=== PATIENT | male | born 1970 | race Caucasian/White ===

== ENCOUNTER 2019-01-03 11:26 | Emergency (ER) | payer OTHER, SELFPAY ==
[2019-01-03 11:48] VITALS: BP 138/108; PULSE 92; RESP 20; TEMP 36.9; O2SAT 99
--- NOTE | 2019-01-03 11:57 | ED.BACK ---
HPI - Back Pain/Injury General Chief Complaint: Back Pain/Injury Stated Complaint: Back pain and spasm since tuesday Time Seen by Provider: 01/03/19 11:56 Source: patient and family () Mode of arrival: ambulatory Limitations: no limitations History of Present Illness HPI Narrative: This is a 48-year-old male comes emergency department complaint of low back pain. Patient states that he chronically has back pain probably about a 3/10 all the time. Over the weekend he was doing a lot of yd work and noted that it increased quite a bit. Normally will calm down after a day or so but he has continued to have back pain that is increased from his normal baseline for the last 3 days. He denies any radiation, denies any loss of bowel or bladder control, denies any numbness or tingling. Patient states little bit more on the right side it is not midline. Skin above SI region or the soft tissue. Patient states that standing for prolonged periods seems to make it worse, he does notice a little bit worse when he tries to urinate or bend over to lift up the toilet seat. Also if he sitting for long period of time and then tries to get up uncomfortable. Patient states sometimes even just walking across the room will cause him to spasm a little bit more. He states that he had 2 Soma at home which he took yesterday and the day before which were not very helpful. He also tried some ibuprofen with minimal improvement. He has not had any prior back surgeries. Denies any other medical issues. He has a braden in his tibia for fracture. He states that his made him come in today. He has a follow-up appointment tomorrow with primary care but his was concerned that she might not be able to get him out of the car tomorrow. He does work as a water plant operator for many years, he is currently an administrative work but states he did abuse his back quite a bit earlier in his career and had a major back sprain/strain 5-10 years ago. Related Data Home Medications Medication Instructions Recorded Confirmed dextroamphetamine-amphetamine 20 mg PO DAILY 01/03/19 01/03/19 Previous Rx's Medication Instructions Recorded diazepam [Valium] 2 mg PO TID PRN #5 tab 01/03/19 Allergies Allergy/AdvReac Type Severity Reaction Status Date / Time No Known Drug Allergies Allergy Verified 01/03/19 12:19 Review of Systems Review of Systems ROS Unobtainable: All systems reviewed & are unremarkable except as noted in HPI and below Constitutional Denies chills and Denies fever(s) ENT Ears, Nose, Mouth, and Throat: Denies neck pain Gastrointestinal Gastrointestinal: Denies fecal incontinence Genitourinary Denies flank pain, Denies urinary incontinence and Denies urinary urgency Musculoskeletal Reports as per HPI, Reports back pain, Denies myalgias, Reports limited range of motion, Denies muscle weakness, Denies neck pain, Denies numbness, Denies radiating pain into limb, Reports stiffness and Denies tingling Integumentary/Breasts Denies unusual bruising Neurologic Denies numbness and Denies tingling [facility] Medical History (Updated 01/03/19 @ 12:25 by Kathe Guy DO) Chronic back pain (Chronic) Social History Smoking Status: Former smoker Social History Smoking Status: Former smoker Exam Narrative Exam Narrative: GENERAL: Alert and oriented x three, well-nourished, well-appearing male in [id number] distress. Patient is standing initially when I come into the room. He does sit down but does keep his back very straight. HEENT: Head normocephalic, atraumatic, EOMI, pupils reactive, face symmetric, moist mucous membranes NECK: Supple, full range of motion CARDIOVASCULAR: Regular rate and rhythm without murmurs, rubs or gallops. RESPIRATORY: Breath sounds equal bilaterally, no wheezes rales or rhonchi. ABDOMEN: Soft, nontender. Normoactive bowel sounds all 4 quadrants. No guarding or rebound, rigidity, no mass : No CVA tenderness BACK: No cervical, thoracic or lumbar vertebral point tenderness. Patient has some mild discomfort in the right lower lumbar region just above the SI. There is some muscle tightness but did some moderate. Patient has decreased range of motion, patient hold his back in a very straight positioning. Patient's gait is normal. Rectal exam is deferred. Muscle strength is 5/5 in lower extremities, DTRs are 2/4 and lower extremities. Dorsalis pedis and tibialis pulses are 2+ and lower extremities. Sensation is intact in the lower extremities. EXTREMITIES: Normal range of motion, no clubbing or edema. Neurovascularly intact NEUROLOGICAL: Cranial nerves II through XII grossly intact. Moving all extremities SKIN: Warm, dry, no petechiae, no rashes or lesions. Initial Vital Signs Initial Vital Signs: Vital Signs Temperature 98.4 F 01/03/19 11:48 Pulse Rate 92 H 01/03/19 11:48 Respiratory Rate 20 01/03/19 11:48 Blood Pressure 138/108 H 01/03/19 11:48 Pulse Oximetry 99 01/03/19 11:48 Course Orders Ordered: ED Orders 01/03/19 12:15 XR lumbar spine 2-3V Stat Discontinued Medications Diazepam (Valium) 2 mg PO NOW ONE Stop: 01/03/19 12:15 Last Admin: 01/03/19 12:19 Dose: 2 mg Ketorolac Tromethamine (Toradol) 60 mg IM NOW ONE Stop: 01/03/19 12:15 Last Admin: 01/03/19 12:19 Dose: 60 mg Vital Signs - 8 hr 01/03/19 11:48 Temperature 98.4 F Pulse Rate 92 H Respiratory Rate 20 Blood Pressure 138/108 H Pulse Oximetry 99 MDM - Back Pain/Injury Imaging Data Lumbar spine x-ray: Radiologist's impression: [place] [address] XRay Report Signed Patient: Frank Rai LMR#: [id number] : 1970Acct:[id number] Age/Sex: 48 / MDate of Service: 01/03/19 Loc: ED Accession Number: [id number] Procedure: XR lumbar spine 2-3V Ordering Provider: Kathe Guy D.O. PROCEDURE: XR LUMBAR SPINE 2-3V INDICATIONS: low back pain, right sided, acute on chronic TECHNIQUE: 3 views of the lumbar spine were acquired. COMPARISON: None. FINDINGS: Bones: 5 [id number] vertebrae are present. There is normal bony alignment. No vertebral body compression fractures. No suspicious bony lesions. There is degenerative disc disease, moderate at L4-L5 and mild at L1-L2 and L3-L4. Soft tissues: Overlying bowel gas pattern is normal. No suspicious soft tissue calcifications. IMPRESSION: 1. Degenerative disc disease in lumbar spine. Dictated by: Bonnie Perez M.D. on 01/03/2019 at 12:57 Approved by: Bonnie Perez M.D. on 01/03/2019 at 12:59 [facility] Narrative Medical decision making narrative: Patient comes in with increased pain on his acute on chronic exacerbation. He states he has had images but thinks they are probably 10 years old or more. With his increase in pain although he has had no acute injuries discussed that it may be beneficial to obtain x-ray screening. Patient states he can follow up with his primary tomorrow he has an appointment. We discussed doing ibuprofen and a muscle relaxant as needed until then. Discharge Plan Departure Patient Disposition: Home Clinical Impression: Acute exacerbation of chronic low back pain Instructions: DI for Low Back Pain Activity Restrictions/Additional Instructions: Follow-up with your primary care physician as scheduled. Continue ibuprofen you may take 800 mg every 8 hours as needed. You may take Valium every 8 hours needed, this medication can make you sleepy do not drive, perform hazardous activities or make any major decisions while taking it. You may use heat and/or ice as needed to the affected area. Return to the emergency department for fevers greater than 100.4 F, if you are having rapidly worsening pain new weakness, loss of sensation in your extremities, loss of bowel or bladder control, numbness in your groin or other new or concerning symptoms. Prescriptions: New diazepam [Valium] 2 mg tablet 2 mg PO TID PRN (Reason: muscle spasm) Qty: 5 RF: 0 No Action dextroamphetamine-amphetamine 20 mg capsule,extended release 24hr 20 mg PO DAILY RF: 0
--- NOTE | 2019-01-03 12:15 | DI.RAD.S_ITS ---
PROCEDURE: XR LUMBAR SPINE 2-3V INDICATIONS: low back pain, right sided, acute on chronic TECHNIQUE: 3 views of the lumbar spine were acquired. COMPARISON: None. FINDINGS: Bones: 5 [id number] vertebrae are present. There is normal bony alignment. No vertebral body compression fractures. No suspicious bony lesions. There is degenerative disc disease, moderate at L4-L5 and mild at L1-L2 and L3-L4. Soft tissues: Overlying bowel gas pattern is normal. No suspicious soft tissue calcifications. IMPRESSION: 1. Degenerative disc disease in lumbar spine. Dictated by: Bonnie Perez M.D. on 01/03/2019 at 12:57 Approved by: Bonnie Perez M.D. on 01/03/2019 at 12:59
[2019-01-03] MEDS: KETOROLAC 60 MG/2 ML VIAL IM (12:19)
[2019-01-03] MEDS: diazePAM 2 MG TABLET PO (12:19)
--- NOTE | 2019-01-03 12:20 | ED_ITS ---
HPI - Back Pain/Injury General Chief Complaint: Back Pain/Injury Stated Complaint: Back pain and spasm since tuesday Time Seen by Provider: 01/03/19 11:56 Source: patient and family () Mode of arrival: ambulatory Limitations: no limitations History of Present Illness HPI Narrative: This is a 48-year-old male comes emergency department complaint of low back pain. Patient states that he chronically has back pain probably about a 3/10 all the time. Over the weekend he was doing a lot of yd work and noted that it increased quite a bit. Normally will calm down after a day or so but he has continued to have back pain that is increased from his normal baseline for the last 3 days. He denies any radiation, denies any loss of bowel or bladder control, denies any numbness or tingling. Patient states little bit more on the right side it is not midline. Skin above SI region or the soft tissue. Patient states that standing for prolonged periods seems to make it worse, he does notice a little bit worse when he tries to urinate or bend over to lift up the toilet seat. Also if he sitting for long period of time and then tries to get up uncomfortable. Patient states sometimes even just walking across the room will cause him to spasm a little bit more. He states that he had 2 Soma at home which he took yesterday and the day before which were not very helpful. He also tried some ibuprofen with minimal improvement. He has not had any prior back surgeries. Denies any other medical issues. He has a braden in his tibia for fracture. He states that his made him come in today. He has a follow-up appointment tomorrow with primary care but his was concerned that she might not be able to get him out of the car tomorrow. 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 Related Data Home Medications Medication Instructions Recorded Confirmed dextroamphetamine-amphetamine 20 mg PO DAILY 01/03/19 01/03/19 Previous Rx's Medication Instructions Recorded diazepam [Valium] 2 mg PO TID PRN #5 tab 01/03/19 Allergies Allergy/AdvReac Type Severity Reaction Status Date / Time No Known Drug Allergies Allergy Verified 01/03/19 12:19 Review of Systems Review of Systems ROS Unobtainable: All systems reviewed & are unremarkable except as noted in HPI and below Constitutional Denies chills and Denies fever(s) ENT Ears, Nose, Mouth, and Throat: Denies neck pain Gastrointestinal Gastrointestinal: Denies fecal incontinence Genitourinary Denies flank pain, Denies urinary incontinence and Denies urinary urgency Musculoskeletal Reports as per HPI, Reports back pain, Denies myalgias, Reports limited range of motion, Denies muscle weakness, Denies neck pain, Denies numbness, Denies rad iating pain into limb, Reports stiffness and Denies tingling Integumentary/Breasts Denies unusual bruising Neurologic Denies numbness and Denies tingling [facility] Medical History (Updated 01/03/19 @ 12:25 by Kathe Guy DO) Chronic back pain (Chronic) Social History Smoking Status: Former smoker Social History Smoking Status: Former smoker Exam Narrative Exam Narrative: GENERAL: Alert and oriented x three, well-nourished, well- appearing male in [id number] distress. Patient is standing initially when I come into the room. He does sit down but does keep his back very straight. HEENT: Head normocephalic, atraumatic, EOMI, pupils reactive, face symmetric, moist mucous membranes NECK: Supple, full range of motion CARDIOVASCULAR: Regular rate and rhythm without murmurs, rubs or gallops. RESPIRATORY: Breath sounds equal bilaterally, no wheezes rales or rhonchi. ABDOMEN: Soft, nontender. Normoactive bowel sounds all 4 quadrants. No guarding or rebound, rigidity, no mass : No CVA tenderness BACK: No cervical, thoracic or lumbar vertebral point tenderness. Patient has some mild discomfort in the right lower lumbar region just above the SI. There is some muscle tightness but did some moderate. Patient has decreased range of motion, patient hold his back in a very straight positioning. Patient's gait is normal. Rectal exam is deferred. Muscle strength is 5/5 in lower extremities, DTRs are 2/4 and lower extremities. Dorsalis pedis and tibialis pulses are 2+ and lower extremities. Sensation is intact in the lower extremities. EXTREMITIES: Normal range of motion, no clubbing or edema. Neurovascularly intact NEUROLOGICAL: Cranial nerves II through XII grossly intact. Moving all extremities SKIN: Warm, dry, no petechiae, no rashes or lesions. Initial Vital Signs Initial Vital Signs: Vital Signs Temperature 98.4 F 01/03/19 11:48 Pulse Rate 92 H 01/03/19 11:48 Respiratory Rate 20 01/03/19 11:48 Blood Pressure 138/108 H 01/03/19 11:48 Pulse Oximetry 99 01/03/19 11:48 Course Orders Ordered: ED Orders 01/03/19 12:15 XR lumbar spine 2-3V Stat Discontinued Medications Diazepam (Valium) 2 mg PO NOW ONE Stop: 01/03/19 12:15 Last Admin: 01/03/19 12:19 Dose: 2 mg Ketorolac Tromethamine (Toradol) 60 mg IM NOW ONE Stop: 01/03/19 12:15 Last Admin: 01/03/19 12:19 Dose: 60 mg Vital Signs - 8 hr 01/03/19 11:48 Temperature 98.4 F Pulse Rate 92 H Respiratory Rate 20 Blood Pressure 138/108 H Pulse Oximetry 99 MDM - Back Pain/Injury Imaging Data Lumbar spine x-ray: Radiologist's impression: [place] [address] XRay Report Signed Patient: Frank Rai LMR#: [id number] : 1970Acct:[id number] Age/Sex: 48 / MDate of Service: 01/03/19 Loc: ED Accession Number: [id number] Procedure: XR lumbar spine 2-3V Ordering Provider: Kathe Guy D.O. PROCEDURE: XR LUMBAR SPINE 2-3V INDICATIONS: low back pain, right sided, acute on chronic TECHNIQUE: 3 views of the lumbar spine were acquired. COMPARISON: None. FINDINGS: Bones: 5 [id number] vertebrae are present. There is normal bony alignment. No vertebral body compression fractures. No suspicious bony lesions. There is degenerative disc disease, moderate at L4-L5 and mild at L1-L2 and L3-L4. Soft tissues: Overlying bowel gas pattern is normal. No suspicious soft tissue calcifications. IMPRESSION: 1. Degenerative disc disease in lumbar spine. Dictated by: Bonnie Perez M.D. on 01/03/2019 at 12:57 Approved by: Bonnie Perez M.D. on 01/03/2019 at 12:59 [facility] Narrative Medical decision making narrative: Patient comes in with increased pain on his acute on chronic exacerbation. He states he has had images but thinks they are probably 10 years old or more. With his increase in pain although he has had no acute injuries discussed that it may be beneficial to obtain x-ray screening. Patient states he can follow up with his primary tomorrow he has an appointment. We discussed doing ibuprofen and a muscle relaxant as needed until then. Discharge Plan Departure Patient Disposition: Home Clinical Impression: Acute exacerbation of chronic low back pain Instructions: DI for Low Back Pain Activity Restrictions/Additional Instructions: Follow-up with your primary care physician as scheduled. Continue ibuprofen you may take 800 mg every 8 hours as needed. You may take Valium every 8 hours needed, this medication can make you sleepy do not drive, perform hazardous activities or make any major decisions while taking it. You may use heat and/or ice as needed to the affected area. Return to the emergency department for fevers greater than 100.4 F, if you are having rapidly worsening pain new weakness, loss of sensation in your extremities, loss of bowel or bladder control, numbness in your groin or other new or concerning symptoms. Prescriptions: New diazepam [Valium] 2 mg tablet 2 mg PO TID PRN (Reason: muscle spasm) Qty: 5 RF: 0 No Action dextroamphetamine-amphetamine 20 mg capsule,extended release 24hr 20 mg PO DAILY RF: 0
[2019-01-03 13:18] VITALS: BP 134/97; PULSE 75; RESP 17; O2SAT 100
== END 2019-01-03 13:21 | disposition home or self-care (01) ==
PROVIDERS: Emergency Provider Emergency Medicine
DX: M54.5 Low back pain (principal)
CPT/HCPCS: 72100; 96372; 99282; 99283; J1885